=== PATIENT | male | born 1980 | race Two or more races ===

== ENCOUNTER 2017-01-25 10:59 | Emergency (ER) | payer SELFPAY ==
[2017-01-25 11:14] VITALS: BP 135/58; PULSE 72; RESP 18; TEMP 98.4; O2SAT 95
--- NOTE | 2017-01-25 11:36 | UCPHY ---
H & P Patient Type: New Chief Complaint Nursing Narrative: LEFT HEEL PAIN FOR 5 MONTHS, INCREASED PAIN LAST WEEK, DENIES EXACT INJURY. +[facility] Time Seen by Provider: 01/25/17 11:24 HPI/ROS: CHIEF COMPLAINT: Foot pain HISTORY OF PRESENT ILLNESS: The patient is a 36-year-old man who comes to the Urgent Care complaining of low left foot pain. He has pain just to the anterior aspect of his calcaneus. He states that it has been present for 5 months and is worsened with ambulation or palpation. He states that he has had this intermittently in the past and it usually goes away after a month or 2. This time it is persisted however. He has not had a fever. He does not remember any specific trauma. REVIEW OF SYSTEMS: Constitutional: denies: chills, fever, recent illness, recent injury EENTM: denies: blurred vision, double vision, nose congestion Respiratory: denies: cough, shortness of breath Cardiac: denies: chest pain, irregular heart rate, lightheadedness, palpitations Gastrointestinal/Abdominal: denies: abdominal pain, diarrhea, nausea, vomiting, blood streaked stools Genitourinary: denies: dysuria, frequency, hematuria, pain Musculoskeletal: See HPI Skin: denies: lesions, rash, jaundice, bruising Neurological: denies: headache, numbness, paresthesia, tingling, dizziness, weakness Hematologic/Lymphatic: denies: blood clots, easy bleeding, easy bruising Immunologic/allergic: denies: HIV/AIDS, transplant EXAM: GENERAL: Well-appearing, well-nourished and in no acute distress. HEAD: Atraumatic, normocephalic. EYES: Pupils equal round and reactive to light, extraocular movements intact, sclera anicteric, conjunctiva are normal. ENT: TMs normal, nares patent, oropharynx clear without exudates. Moist mucous membranes. NECK: Normal range of motion, supple without lymphadenopathy or JVD. LUNGS: Breath sounds clear to auscultation bilaterally and equal. No wheezes rales or rhonchi. HEART: Regular rate and rhythm without murmurs, rubs or gallops. ABDOMEN: Soft, nontender, normoactive bowel sounds. No guarding, no rebound. No masses appreciated. BACK: No CVA tenderness, no spinal tenderness, step-offs or deformities EXTREMITIES: Tenderness to medial anterior calcaneus on left foot near tendon insertion. Normal weight-bearing imbalance. NEUROLOGICAL: Cranial nerves II through XII grossly intact. Normal speech, normal gait. 5/5 strength, normal movement in all extremities, normal sensation PSYCH: Normal mood, normal affect. SKIN: Warm, dry, normal turgor, no visible rashes or lesions. Source: Patient Exam Limitations: No limitations - Medical/Surgical History Hx Asthma: No Hx Chronic Respiratory Disease: No Hx Diabetes: No Hx Cardiac Disease: No Hx Renal Disease: No Hx Cirrhosis: No Hx Alcoholism: No Hx HIV/AIDS: No Hx Splenectomy or Spleen Trauma: No Other PMH: med [id number]. surg-none - Family History Significant Family History: No pertinent family hx - Social History Smoking Status: Former smoker Alcohol Use: Sober Drug Use: None Constitutional: Initial Vital Signs Temperature (C) 36.9 C 01/25/17 11:12 Heart Rate 72 01/25/17 11:12 Respiratory Rate 18 01/25/17 11:12 Blood Pressure 135/58 H 01/25/17 11:12 O2 Sat (%) 95 01/25/17 11:12 O2 Delivery Mode Room Air Allergies/Adverse Reactions: No Known Allergies Allergy (Verified 01/25/17 11:11) Home Medications: Medication Instructions Recorded NK [No Known Home Meds] 01/25/17 Medical Decision Making - Diagnostics Imaging: X-ray: Calcaneus x-ray was obtained. I viewed the images myself on the PACS system. My interpretation of the images is: negative for acute disease . The radiologist interpretation is pending. ED Course/Re-evaluation: The patient has symptoms consistent with plantar fasciitis. Placed him in a postop shoe and encouraged anti-inflammatories and rest. Have him follow up with Orthopedics. Differential Diagnosis: Partial list of the Differential diagnosis considered include but were not limited to; fracture, tendon avulsion, plantar fasciitis and although unlikely based on the history and physical exam, I also considered infection. I discussed these differential diagnoses and the plan with the patient as well as the usual and expected course. The patient understands that the diagnosis is provisional and that in medicine we are not always correct and that further workup is often warranted. Usual and customary warnings were given. All of the patient's questions were answered. The patient was instructed to return to the emergency department should the symptoms at all worsen or return, otherwise to followup with the physician as we discussed. Departure - Departure Disposition: Home, Routine, Self-Care Clinical Impression: Plantar fasciitis, left Condition: Fair Instructions: Plantar Fasciitis (ED) Referrals: Alessio Youssef MD [Medical Doctor] - As per Instructions Stand Alone Forms: Work Excuse - PQRS PQRS Measurement: Not applicable
== END 2017-01-25 12:30 | disposition home or self-care (01) ==
LOC: CED 10:59
DX: M72.2 Plantar fascial fibromatosis (principal); Z87.891 Personal history of nicotine dependence
CPT/HCPCS: 73650-PO; 99204-PO; G0463-PO